=== PATIENT | male | born 1950 | race Caucasian/White ===

== ENCOUNTER → 2018-02-26 | Outpatient (CLI) | payer MEDICARE, OTHER ==
[~2018-02-26] VITALS: Ht 177.8 cm; Wt 82.0 kg
[~2018-02-26] MED LIST: ACETYLCHOLINE CHL OPHT SOLN 1:100 2 ML VIAL ONE; ASPI81TA23 PO; ATOR40TA16 PO; CHLORHEXIDINE GLUCONATE 2 % 1 PACK (2 CLOTHS) TOPICAL PRN; CYCLOPENTOLATE HCL 1% OPHT SOLN 2 ML BTL ONE; DICLOFENAC SOD 0.1% OPHT SOLN 2.5 ML BTL ONE; EPINEPHrine HCL PF/SF (1:1000) 1 MG/ML AMP I-OCULAR ONE; GATIFLOXACIN 0.5% OPHT SOLN 2.5 ML BTL ONE; HYALURONIDASE/LIDOCAINE/BUPIVACAINE 5 ML SYR RIGHT EYE ONE; HYDR12.57 PO; LACTATED RINGER'S 1000 ML IV PRN; LISI-515 PO; METF500T PO; METO50TA PO; METOPROLOL TARTRATE 25 MG TAB PO PRN; PHENYLEPHRINE HCL 2.5% OPTH SOLN 2 ML BTL ONE; PILOCARPINE HCL 2% OPHT SOLN 15 ML BTL ONE; POVIDONE IODINE 5% (ANTISEPSIS KIT) 4 APPLICATIONS EACH NARE PRN; PROPARACAINE HCL 0.5% OPHT SOLN 15 ML BTL ONE; PROPARACAINE HCL 0.5% OPHT SOLN 15 ML BTL RIGHT EYE ONE; PROPOFOL 200 MG/20 ML AMP ONE; SODIUM CHLORID 0.9% 500 ML IV PRN; TAMS5CAP PO; TOBRAMYCIN/DEXAMETHASONE OPTH OINT 3.5 GM TUBE ONE; TROPICAMIDE 1% OPHT SOLN 15 ML BTL ONE; VISCOAT OPHT IRRIG SOLN 0.75 ML SYRINGE ONE
[2018-02-26 06:47] VITALS: PULSE 86
--- NOTE | 2018-02-26 06:47 | MH ---
cc: Yohan Zamarripa MD DATE OF ADMISSION: 02/26/2018 ADMISSION DIAGNOSIS: Cataract, right eye. HISTORY OF PRESENT ILLNESS: This 67-year-old white male is coming through [facility] for the purpose of a lens extraction of the right eye with intraocular lens implant under local anesthesia. He has noted decreasing visual acuity interfering with his daily activities and elected to have the above procedure. His best corrected visual acuity is 20/40 -1 +1 in the right eye and 20/25 in the left eye in room light. PAST MEDICAL HISTORY: The patient has a history of hypertension, type 2 diabetes and coronary artery disease. PAST SURGICAL HISTORY: Includes coronary artery bypass graft quadruple in 2012 and kyphoplasty in 2008. DAILY MEDICATIONS: Include: 1. Metformin. 2. Atorvastatin. 3. Metoprolol ER. 4. Lisinopril. 5. Hydrochlorothiazide. 6. 81 mg of aspirin. ALLERGIES: HE HAS NO KNOWN ALLERGIES. SOCIAL HISTORY: He was a smoker in the past and smoked 1 pack per day for 25 years and does drink alcohol. FAMILY HISTORY: Positive for mother with cataracts and macular degeneration. REVIEW OF SYSTEMS: HEAD: Patient denies severe headaches, dizziness or recent head injury. EARS: The patient has ringing in his ears, tinnitus for many years in both ears. Patient denies hearing loss, ear pain or discharge. NOSE: Patient denies nasal discharge, obstruction or frequent colds. MOUTH AND THROAT: Patient denies soreness of the mouth or tongue, bleeding gums, trouble swallowing, changes in voice or sore throat. NECK: Patient denies neck pain or swelling, limitation of neck movement or neck injury. CARDIOPULMONARY SYSTEM: Patient denies shortness of breath, orthopnea, chronic cough, sputum production, hemoptysis, chest pain, wheezing, palpitations or light-headedness. GI SYSTEM: The patient has a history of hemorrhoids. Patient denies poor appetite, nausea, vomiting, abdominal pain, ulcers or change in bowel habits. SYSTEM: The patient has urinary frequency secondary to his diabetes he feels. The patient denies dysuria, change in urine color. NERVOUS SYSTEM: Patient denies convulsions, vertigo, stroke, numbness or weakness. PHYSICAL EXAMINATION: VITAL SIGNS: Blood pressure is 122/74, pulse is 92, respirations 16. HEENT: Head is normocephalic, atraumatic. Nose without rhinorrhea. Throat: Clear. NECK: Supple. CHEST: Clear. HEART: Regular rate and rhythm. ABDOMEN: Without tenderness. EXTREMITIES: Without edema. NEUROLOGIC: Within normal limits. MENTAL STATUS: Within normal limits. EYE EXAM: The patient's best corrected visual acuity is 20/40 -1+1 in the right eye and 20/25 in the left eye in room light. Visual chapa are full to confrontation testing. Extraocular muscle exam reveals full versions with orthophoria in the distance and exophoria at near. Pupils are 2.5 mm, equal, round, and reactive to light, without afferent defect. Anterior segment examination reveals conjunctival pinguicula and corneal arcus. A nuclear sclerotic cataract is present, greater in the right eye than the left. Intraocular pressure is 16 in each eye by applanation tonometry. Dilated fundus exam revealed sharp disc with cup-to-disc ratio of 0.3 in the right eye and 0.35 in the left. Mild macular drusen are present bilaterally. A posterior vitreous detachment is present bilaterally. IMPRESSION: 1. Bilateral cataracts, right greater than the left. 2. Posterior vitreous detachment both eyes. 3. Mild macular drusen both eyes. 4. Corneal arcus. 5. Pinguecula. PLAN: Lens extraction of the right eye with intraocular lens implant under local anesthesia through [facility]. The patient has been cleared medically. He has been counseled as to the risks, benefits and alternatives and elected to proceed. I feel that cataract surgery will improve the quality of life and activities of daily living in this patient. MD KEITH Santoyo/FELIPE , 02:05 PM , 02:37 PM
[2018-02-26] MEDS: CYCLOPENTOLATE HCL 1% OPHT SOLN 2 ML BTL RIGHT EYE SCH ×4 (06:49→06:58)
[2018-02-26] MEDS: TROPICAMIDE 1% OPHT SOLN 15 ML BTL RIGHT EYE SCH ×4 (06:49→06:58)
[2018-02-26] MEDS: GATIFLOXACIN 0.5% OPHT SOLN 2.5 ML BTL RIGHT EYE SCH ×4 (06:49→06:58)
[2018-02-26] MEDS: DICLOFENAC SOD 0.1% OPHT SOLN 2.5 ML BTL RIGHT EYE SCH ×4 (06:49→06:58)
[2018-02-26] MEDS: PHENYLEPHRINE HCL 2.5% OPTH SOLN 2 ML BTL RIGHT EYE SCH ×4 (06:49→06:58)
[2018-02-26 07:21] VITALS: PULSE 86
[2018-02-26 08:50] VITALS: TEMP 98.2
[2018-02-26 09:10] VITALS: BP 119/73; PULSE 83; RESP 16; O2SAT 98
--- NOTE | 2018-02-26 09:10 | MP ---
cc: Yohan Zamarripa MD DATE OF OPERATION: 02/26/2018 PREOPERATIVE DIAGNOSIS: Cataract right eye. POSTOPERATIVE DIAGNOSIS: Cataract right eye. OPERATION: Extracapsular cataract extraction with posterior chamber intraocular lens implant by phacoemulsification, right eye. SURGEON: Yohan Zamarripa M.D. ANESTHESIA: Local. COMPLICATIONS: None. INDICATIONS: See history and physical previously dictated. OPERATIVE PROCEDURE: The patient had adequate retrobulbar and eyelid blocks administered in the holding area and was brought to the operating room. The right eye was prepped and draped in the usual sterile ophthalmic manner. A lid speculum was inserted in the right eye. A 4-0 silk bridle suture was placed through the conjunctiva near the superior rectus muscle and it was tagged to the drape. A fornix-based conjunctival flap was prepared spanning approximately 5 mm in width. Hemostasis was obtained with wet-field cautery. A 3.5 mm groove was made 1 mm from the limbus and dissected up to the limbus in the form of a scleral pocket incision. A stab incision was then made at the 2 o'clock position. Viscoelastic was injected into the anterior chamber. In order to maintain an adequately dilated pupil, it was elected to use iris retractors in this case. Stab incisions were made at the 1 o'clock, 3 o'clock, 5 o'clock, 8 o'clock and 10 o'clock positions. Iris retractors were then inserted through the stab incisions in the peripheral cornea and positioned to enlarge the size of the pupil. The anterior chamber was entered with a 2.75 mm keratome through the scleral pocket incision. A 360 degree continuous curvilinear capsulorrhexis was then performed. Hydrodissection was utilized to divide the nucleus into inner and outer components and to separate the cortex from the capsule. Phacoemulsification was then utilized to remove the nucleus. The outer nuclear layer was removed with irrigation and aspiration and short bursts of ultrasound as necessary. The cortex was removed with the irrigation-aspiration handpiece. The posterior capsule was polished with the capsule polisher. Viscoelastic was injected into the capsular bag. The intraocular lens was inspected and found to be in good condition. The lens utilized was a Sammy, model SA60AT with a power of +21 diopters. The lens was inserted into the capsular bag. The five iris retractors were removed. The viscoelastic in the anterior chamber was then removed with the irrigation-aspiration hand piece. Viscoelastic was also removed from beneath the intraocular lens. The anterior chamber was filled with Miochol-E through the stab incision and pressurized. The wound was checked for leaks at this pressure and normalized pressure and there were none. The 4-0 bridle suture was removed. The conjunctival flap was brought down over the wound and secured with cautery. Pilocarpine 2% eye drops were instilled topically. The lid speculum was removed. TobraDex ophthalmic ointment was applied. The eye was double patched and shielded. The patient tolerated the procedure well and left the operating room in satisfactory condition. MD KEITH Santoyo/FRANK , 09:03 AM , 09:09 AM
== END ==
LOC: PHSDC 06:06
PROVIDERS: ATTEND Ophthalmology
DX: H25.11 Age-related nuclear cataract, right eye (principal); H21.89 Other specified disorders of iris and ciliary body; H43.813 Vitreous degeneration, bilateral; H35.363 Drusen (degenerative) of macula, bilateral; I25.10 Atherosclerotic heart disease of native coronary artery without angina pectoris; E11.36 Type 2 diabetes mellitus with diabetic cataract; I10 Essential (primary) hypertension; Z95.1 Presence of aortocoronary bypass graft; Z79.84 Long term (current) use of oral hypoglycemic drugs
CPT/HCPCS: 00142; 66982; J0171; J7040; V2632